=== PATIENT | male | born 1940 | race Caucasian/White ===

== ENCOUNTER 2016-09-05 01:47 | Emergency (ER) | payer OTHER ==
[~2016-09-05] VITALS: Ht 185.4 cm; Wt 86.2 kg
[2016-09-05 01:47] VITALS: BP 150/100; PULSE 84; RESP 20; TEMP 99.3; O2SAT 100
--- NOTE | 2016-09-05 01:47 | NUR ---
Patient to ER bed 2 to gown for evaluation. Side rails up. Report given to REEMA ISRAEL.
--- NOTE | 2016-09-05 02:00 | NUR ---
Pt BIB EMS for alcohol intoxication and possible synpocal episode. Paramedics reported that pt was found at his friend's house after drinking alcohol, unknown amount. Pt stated he has been drinking, denies head injury or KO. Pt brought to ED in backboard , no C-collar noted. Pt A&Ox4, denies SOB or chestpain, denies N/V/D, chronic back pain 10/23. Skin intact. Will continue to monitor
--- NOTE | 2016-09-05 02:22 | NUR ---
MD Urrutia at bedside examining pt
[2016-09-05 02:55] LABS: ANION GAP 10 (5-15); CALCIUM 8.5 mg/dL (8.4-11.0); CHLORIDE 106 mmol/L (98-107); GLUCOSE 93 mg/dL (70-99); SODIUM SERUM 144 mmol/L (136-145); UREA NITROGEN, BLOOD 9 mg/dL (8-21)
[2016-09-05] MEDS ORDERED: NACL 0.9% 1,000 ML IV ONE (03:00)
[2016-09-05] MEDS ORDERED: MORPHINE 2 MG/ML INJ. SYRINGE IVP ONE (03:00)
[2016-09-05 03:01] LABS: BASOPHILS % (AUTO) 0.4 % (0.0-2.0); EOSINOPHILS # (AUTO) 0.2 K/uL (0.0-0.4); EOSINOPHILS % (AUTO) 3.4 % (0.0-4.0); HEMATOCRIT 35.8 % (36-54); HEMOGLOBIN 11.9 g/dL (14.0-18.0); LYMPHOCYTES # (AUTO) 1.6 K/uL (1.0-5.5); LYMPHOCYTES % (AUTO) 32.8 % (20.5-51.5); MEAN CORPUSCULAR HEMOGLOBIN 31 pg (27-31); MEAN CORPUSCULAR HGB CONC 33 % (32-36); MEAN CORPUSCULAR VOLUME 93 fL (79.0-98.0); MONOCYTES # (AUTO) 0.4 K/uL (0.0-1.0); MONOCYTES % (AUTO) 8.1 % (1.7-9.3); NEUTROPHILS # (AUTO) 2.6 K/uL (1.8-7.7); NEUTROPHILS % (AUTO) 55.3 % (40.0-70.0); RED BLOOD CELL COUNT(AUTO) 3.84 MIL/uL (4.2-6.2); RED CELL DISTRIBUTION WIDTH 14.1 % (9.0-15.0); WHITE BLOOD COUNT (AUTO) 4.8 K/uL (4.8-10.8)
[2016-09-05 03:04] LABS: ALANINE AMINOTRANSFERASE 43 U/L (12-78); ALBUMIN 3.1 g/dL (3.4-4.8); ASPARTATE AMINOTRANSFERASE 85 U/L (10-37); TOTAL BILIRUBIN 0.6 mg/dL (0.0-1.0)
--- NOTE | 2016-09-05 03:30 | NUR ---
Pt in bed appeared resting comfortably. No distress noted
[2016-09-05] MEDS ORDERED: KETOROLAC TROMETHAMINE 30 MG VIAL IVP ONE (03:45)
[2016-09-05 03:52] LABS: PLATELET COUNT (AUTO) 84 K/uL (130-430)
[2016-09-05 04:51] LABS: BILIRUBIN,URINE NEGATIVE (NEGATIVE); BLOOD, URINE 1+ (NEGATIVE); CLARITY/URINE CLEAR (CLEAR); COLOR,URINE YELLOW (YELLOW); GLUCOSE,URINE NEGATIVE (NEGATIVE); KETONES,URINE TRACE (NEGATIVE); LEUKOCYTE ESTERASE ,URINE NEGATIVE (NEGATIVE); NITRITE, URINE NEGATIVE (NEGATIVE); PROTEIN URINE TRACE (NEGATIVE); UROBILINOGEN,URINE 0.2 (0.2-1.0)
--- NOTE | 2016-09-05 05:00 | NUR ---
Pt in bed, no sign of distress
[2016-09-05 05:19] LABS: BACTERIA,URINE None Seen /HPF (None Seen); WBC,URINE NONE SEEN /HPF (0-3)
[2016-09-05 06:52] VITALS: BP 132/78; PULSE 77; RESP 18; TEMP 98.6; O2SAT 99
--- NOTE | 2016-09-05 06:52 | NUR ---
Patient given written and verbal discharge instructions and verbalizes understanding. ER MD Urrutia discussed with patient the results and treatment provided. Given copies of tests performed in ER. Patient in stable condition. ID arm band removed. IV catheter removed intact and dressing applied, no active bleeding. Rx of motrin and norco given. Patient educated on pain management and to follow up with PMD. Pain Scale 2/10. Opportunity for questions provided and answered.
== END 2016-09-05 06:50 | disposition home or self-care (01) ==
LOC: SED 01:47
DX: S32.028A Other fracture of second lumbar vertebra, initial encounter for closed fracture (principal); S22.088A Other fracture of T11-T12 vertebra, initial encounter for closed fracture; F10.129 Alcohol abuse with intoxication, unspecified; R55 Syncope and collapse; K21.9 Gastro-esophageal reflux disease without esophagitis; I10 Essential (primary) hypertension; Z90.49 Acquired absence of other specified parts of digestive tract; W19.XXXA Unspecified fall, initial encounter; Y93.89 Activity, other specified; Y99.8 Other external cause status; Y92.89 Other specified places as the place of occurrence of the external cause
CPT/HCPCS: 36415; 70450; 72131; 80053; 81000; 84484; 85025; 93005; 96361; 96374; 96375; 99285; J1885; J2270; J7030

== ENCOUNTER 2020-08-06 10:31 | Emergency (ER) | payer BC, MEDICAID ==
[~2020-08-06] VITALS: Ht 182.9 cm; Wt 81.6 kg
[2020-08-06 10:31] VITALS: BP_SYST 108
[2020-08-06 12:10] VITALS: BP_SYST 108
== END 2020-08-06 12:11 | disposition home or self-care (01) ==
LOC: SED 10:31
DX: F07.81 Postconcussional syndrome (principal); I10 Essential (primary) hypertension; K21.9 Gastro-esophageal reflux disease without esophagitis; F10.239 Alcohol dependence with withdrawal, unspecified
CPT/HCPCS: 70450-TC; 76376; 99283

== ENCOUNTER 2024-01-13 15:27 | Emergency (ER) | payer OTHER, MEDICAID ==
[~2024-01-13] VITALS: Ht 182.9 cm; Wt 95.3 kg
[2024-01-13 15:45] VITALS: BP_SYST 98; PULSE 95; RESP 18; TEMP 97.5; O2SAT 93
[2024-01-13] MEDS ORDERED: BACTROBAN TP (16:21)
[2024-01-13 16:47] VITALS: BP_SYST 101; PULSE 85; RESP 18; TEMP 97.8; O2SAT 94
== END 2024-01-13 16:45 | disposition home or self-care (01) ==
LOC: SED 15:27
DX: D22.9 Melanocytic nevi, unspecified (principal); J44.9 Chronic obstructive pulmonary disease, unspecified; K21.9 Gastro-esophageal reflux disease without esophagitis; I10 Essential (primary) hypertension
CPT/HCPCS: 99283